=== PATIENT | female | born 1975 | race Caucasian/White ===

== ENCOUNTER 2016-03-19 07:57 | Emergency (ER) | payer OTHER ==
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
[2016-03-19 08:12] VITALS: BP 114/68
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
== END 2016-03-19 09:31 | disposition home or self-care (01) ==
LOC: UCCORT 07:57
DX: S20.211A Contusion of right front wall of thorax, initial encounter (principal); W50.0XXA Accidental hit or strike by another person, initial encounter
CPT/HCPCS: 81025; 99211; G0463